=== PATIENT | male | born 1980 | race Caucasian/White ===

== ENCOUNTER → 2019-11-26 | Outpatient (CLI) | payer OTHER ==
[2019-11-26 09:11] LABS: EOS # 0.1 (0.04-0.40); EOS % 1.9 % (0.0-4.0); HEMATOCRIT 43.8 % (42.0-52.0); LYMPH# 1.2 (1.50-4.00); MEAN CELL VOLUME 86 fl (78-100); MEAN CORPUSCULAR HEMOGLOBIN 30 pg (27-31); MEAN CORPUSCULAR HGB CONC 34 g/dL (33-37); MONO # 0.6 (0.20-0.80); NEU # 4.9 (1.40-6.50); PLATELET COUNT 260 K/mm3 (130-400); RED BLOOD COUNT 5.08 M/mm3 (4.20-5.60); RED CELL DISTRIBUTION WIDTH 12.8 % (11.5-14.5); WHITE BLOOD COUNT 6.9 K/mm3 (4.8-10.8)
[2019-11-26 09:21] LABS: ALBUMIN 4.5 g/dL (3.5-5.0)
[2019-11-26 09:23] LABS: CALCIUM 9.7 mg/dL (8.3-10.5)
[2019-11-26 09:24] LABS: TOTAL PROTEIN 8.1 g/dL (6.4-8.3)
[2019-11-26 09:26] LABS: TOTAL BILIRUBIN 0.8 mg/dL (0.2-1.2)
== END ==
LOC: LAB 09:00
PROVIDERS: Nurse Practitioner
DX: Z01.89 Encounter for other specified special examinations (principal)

== ENCOUNTER → 2020-09-08 | Outpatient (CLI) | payer OTHER ==
[2020-09-08 11:25] LABS: EOS % 0.2 % (0.0-4.0); HEMATOCRIT 41.6 % (42.0-52.0); HEMOGLOBIN 14.4 g/dL (13.5-18.0); LYMPH# 1.2 (1.50-4.00); MEAN CELL VOLUME 89 fl (78-100); MEAN CORPUSCULAR HEMOGLOBIN 31 pg (27-31); MEAN CORPUSCULAR HGB CONC 35 g/dL (33-37); MEAN PLATELET VOLUME 9.8 fl (7.4-10.4); MONO # 0.6 (0.20-0.80); NEU # 7.5 (1.40-6.50); PLATELET COUNT 230 K/mm3 (130-400); RED CELL DISTRIBUTION WIDTH 13.2 % (11.5-14.5); WHITE BLOOD COUNT 9.4 K/mm3 (4.8-10.8)
[2020-09-08 12:27] LABS: ALBUMIN 4.4 g/dL (3.5-5.0); POTASSIUM 4.2 mmol/L (3.5-5.1)
[2020-09-08 12:28] LABS: CALCIUM 8.8 mg/dL (8.3-10.5)
[2020-09-08 12:29] LABS: TOTAL PROTEIN 7.4 g/dL (6.4-8.3)
[2020-09-08 12:31] LABS: TOTAL BILIRUBIN 0.9 mg/dL (0.2-1.2)
[2020-09-08 12:39] LABS: ERYTHROCYTE SEDIMENTATION RATE 28 mm/hr (0-15)
== END ==
LOC: LAB 11:12
PROVIDERS: Family Medicine
DX: M25.562 Pain in left knee (principal)

== ENCOUNTER → 2021-01-12 | Outpatient (CLI) | payer OTHER | LOC: RAD 08:42 | DX: M51.36 Other intervertebral disc degeneration, lumbar region (principal); M19.042 Primary osteoarthritis, left hand ==

== ENCOUNTER → 2021-04-09 | Outpatient (CLI) | payer OTHER ==
[2021-04-09 14:36] LABS: BASO # 0.03 (0.02-0.10); EOS # 0.13 (0.04-0.40); HEMATOCRIT 42.7 % (42.0-52.0); LYMPH# 1.44 (1.50-4.00); MEAN CELL VOLUME 90 fl (78-100); MEAN CORPUSCULAR HEMOGLOBIN 32 pg (27-31); MEAN CORPUSCULAR HGB CONC 35 g/dL (33-37); MEAN PLATELET VOLUME 10.1 fl (7.4-10.4); MONO # 0.39 (0.20-0.80); NEU # 4.38 (1.40-6.50); PLATELET COUNT 209 K/mm3 (130-400); RED BLOOD COUNT 4.75 M/mm3 (4.20-5.60); RED CELL DISTRIBUTION WIDTH 12.4 % (11.5-14.5); WHITE BLOOD COUNT 6.4 K/mm3 (4.8-10.8)
[2021-04-09 14:40] LABS: POTASSIUM 4.1 mmol/L (3.5-5.1)
[2021-04-09 14:41] LABS: ALBUMIN 4.4 g/dL (3.5-5.0)
[2021-04-09 14:42] LABS: CALCIUM 9.9 mg/dL (8.3-10.5)
[2021-04-09 15:54] LABS: ERYTHROCYTE SEDIMENTATION RATE 11 mm/hr (0-15)
[2021-04-11 10:14] LABS: ANA SCREEN with REFLEX Indeterminate (Negative)
== END ==
LOC: LAB 14:20
PROVIDERS: Physician Assistant
DX: Z00.00 Encounter for general adult medical examination without abnormal findings (principal); Z12.5 Encounter for screening for malignant neoplasm of prostate; M25.50 Pain in unspecified joint; I10 Essential (primary) hypertension; E78.5 Hyperlipidemia, unspecified

== ENCOUNTER → 2021-04-23 | Outpatient (CLI) | payer OTHER | LOC: LAB 14:54 | DX: R73.9 Hyperglycemia, unspecified (principal); R76.8 Other specified abnormal immunological findings in serum ==

== ENCOUNTER → 2021-12-09 | Outpatient (CLI) | payer OTHER ==
[2021-12-09 10:55] LABS: BASO # 0.04 K/mm3 (0.02-0.10); EOS # 0.05 K/mm3 (0.04-0.40); EOS % 0.7 % (0.0-4.0); HEMATOCRIT 43.8 % (42.0-52.0); HEMOGLOBIN 15.4 g/dL (13.5-18.0); LYMPH# 1.12 K/mm3 (1.50-4.00); MEAN CELL VOLUME 87 fl (78-100); MEAN CORPUSCULAR HEMOGLOBIN 31 pg (27-31); MEAN CORPUSCULAR HGB CONC 35 g/dL (33-37); MEAN PLATELET VOLUME 9.8 fl (7.4-10.4); MONO # 0.47 K/mm3 (0.20-0.80); NEU # 5.83 K/mm3 (1.40-6.50); PLATELET COUNT 270 K/mm3 (130-400); RED BLOOD COUNT 5.05 M/mm3 (4.20-5.60); RED CELL DISTRIBUTION WIDTH 11.7 % (11.5-14.5); WHITE BLOOD COUNT 7.5 K/mm3 (4.8-10.8)
[2021-12-09 10:56] LABS: ALBUMIN 4.2 g/dL (3.5-5.0); POTASSIUM 4.3 mmol/L (3.5-5.1)
[2021-12-09 10:57] LABS: CALCIUM 9.3 mg/dL (8.3-10.5)
[2021-12-09 10:58] LABS: TOTAL PROTEIN 7.4 g/dL (6.4-8.3)
[2021-12-09 11:00] LABS: TOTAL BILIRUBIN 0.6 mg/dL (0.2-1.2)
== END ==
LOC: LAB 09:59
PROVIDERS: Nurse Practitioner Family
DX: R22.32 Localized swelling, mass and lump, left upper limb (principal)

== ENCOUNTER → 2022-03-02 | Outpatient (CLI) | payer OTHER | LOC: LAB 10:41 | DX: U07.1 COVID-19 (principal) ==

== ENCOUNTER 2022-07-17 04:59 | Emergency (ER) | payer OTHER ==
[~2022-07-17] VITALS: Ht 193 cm; Wt 129.5 kg
[2022-07-17] MEDS ORDERED: ALLOPURINOL300 M1 (05:06)
[2022-07-17] MEDS ORDERED: PREDNISONE20 M1 PO (05:39)
[2022-07-17 05:50] VITALS: BP 147/84
== END 2022-07-17 05:51 | disposition home or self-care (01) ==
LOC: ED 04:59
DX: M10.9 Gout, unspecified (principal); Z28.310 Unvaccinated for COVID-19
CPT/HCPCS: J7512